=== PATIENT | female | born 1975 | race Caucasian/White ===

== ENCOUNTER 2016-08-30 11:39 | Emergency (ER) | payer BC, OTHER ==
[2016-08-30 12:46] VITALS: BP 123/78
--- NOTE | 2016-08-30 15:06 | UC ---
Tutu Burgos Karl, scribed for Maria R Medina DO on 08/30/16 at 1324 . FLU HPI - HPI Summary HPI Summary: Pt is a 40 y/o female that presents to [facility] c/o a runny nose, sinus pressure, body aches, ear ache at a 4/10, and a mild productive cough with yellow sputum for the past 4 days. Pt also reported that she is suffering from fever, chills, nausea, GENTILE, and diaphoresis, rating her ear ache, GENTILE, and body aches all at a 4/ 10. Pt is also suffering from fatigue and stated that she is feeling "super tired." Pt denied vomiting and diarrhea. Hx: asthma, 1/2 PPD smoker 26 years. - History of Current Complaint Chief Complaint: UCRespiratory Stated Complaint: CONGESTION, TIRED, Time Seen by Provider: 08/30/16 13:01 Hx Obtained From: Patient Hx Last Menstrual Period: 08/28/16 ?: No Onset/Duration: Gradual Onset, Lasting Days, Still Present Severity Currently: Mild Severity Initially: Mild Pain Intensity: 4 - Ear Pain/Body Aches/GENTILE Pain Scale Used: 0-10 Numeric Associated Signs & Symptoms: Positive: Fever, F/C, Myalgia, Cough, Sore Throat, Nasal Congestion, Headache. Negative: Vomiting, Diarrhea Related Hx: Smoking - Risk Factors Influenza Risk Factors: Negative - Allergy/Home Medications Allergies/Adverse Reactions: Allergies Allergy/AdvReac Type Severity Reaction Status Date / Time Sulfa Antibiotics Allergy Vomiting Verified 07/15/16 15:21 ENVIRONMENTAL Allergy WHEEZE Uncoded 07/15/16 15:21 PMH/Surg Hx/FS Hx/Imm Hx Endocrine History Of: Denies: Diabetes Cardiovascular History Of: Denies: Hypertension, Pacemaker/ICD Respiratory History Of: Reports: Asthma - HX OF SMOKER INDUCED / WHEEZE/TROUBLE BREATHING GI/ History Of: Reports: Kidney Stones - HX OF Psychological History Of: Reports: Anxiety - ON MEDICATION FOR, Depression - ON MEDICATION FOR - Surgical History Surgical History: Yes Surgery Procedure, Year, and Place: DILATION AND CURETTAGE X 2, [facility]. LAPAROSCOPY, [place]. WISDOM TOOTH, OFFICE. URINARY STENT YEARS AGO, [place]. 2013 RIGHT SHOULDER ARTHROSCOPY, ANTERIOR CAPSULORRHAPHY, [facility] [place]. 2015 UMBILICUS HERNIA REPAIR - Family History Known Family History: Positive: Hypertension - mother and father Negative: Cardiac Disease, Diabetes - Social History Alcohol Use: Occasionally Substance Use Type: None Smoking Status (MU): Heavy Every Day Tobacco Smoker Type: Cigarettes, eCigarettes - Pt switched to eCigarettes in March 2016 Amount Used/How Often: 1/2 PPD FOR ABOUT 26 YEARS Length of Time of Smoking/Using Tobacco: 26 YEARS Have You Smoked in the Last Year: Yes When Did the Patient Quit Smoking/Using Tobacco: 03/19/2016 Cessation Counseling: Counseled 3+Min - 10 Min - Immunization History Most Recent Influenza Vaccination: 06/30 Review of Systems Constitutional: Fever, Chills, Fatigue Skin: Negative Eyes: Negative ENT: Sore Throat, Ear Ache, Nasal Discharge, Other - sinus congestion Respiratory: Cough - productive w/ yellow sputum Cardiovascular: Negative Gastrointestinal: Negative Genitourinary: Negative Motor: Negative Neurovascular: Negative Musculoskeletal: Negative, Myalgia - generalized body aches Neurological: Headache Psychological: Negative All Other Systems Reviewed And Are Negative: Yes Physical Exam Triage Information Reviewed: Yes Appearance: Well-Appearing, No Pain Distress, Well-Nourished Vital Signs: Initial Vital Signs Temp 97.7 F 08/30/16 12:43 Pulse 91 08/30/16 12:43 Resp 14 08/30/16 12:43 BP 123/78 08/30/16 12:43 Pulse Ox 100 08/30/16 12:43 Vital Signs Reviewed: Yes Eyes: Positive: Conjunctiva Clear. Negative: Discharge ENT: Positive: Hearing grossly normal, Pharyngeal erythema, Nasal congestion - and discharge, Nasal drainage, Tonsillar swelling, Other: - lymphadenopathy, TM' s occluded on initial exam. Negative: Tonsillar exudate, Trismus, Muffled/ hoarse voice Neck exam: Normal Neck: Positive: Supple. Negative: No Lymphadenopathy Respiratory: Positive: Lungs clear, Normal breath sounds, No respiratory distress, No accessory muscle use Cardiovascular: Positive: RRR, No Murmur Musculoskeletal Exam: Normal Neurological: Positive: Alert, Muscle Tone Normal Psychological Exam: Normal Psychological: Positive: Age Appropriate Behavior Skin Exam: Normal - warm, dry, normal color Flu Course/Dx - Course Course Of Treatment: pt ears could not be fully irrigated. we reccomended use of debrox drops for 2-5 days then repeating irrigation - Differential Dx/Diagnosis Provider Diagnoses: influenza, cerumen impaction Discharge - Discharge Plan Condition: Stable Disposition: HOME Patient Education Materials: Cerumen Impaction (ED), Influenza (ED) Forms: *Work Release Referrals: Alex Varela NP [Primary Care Provider] - If Needed Additional Instructions: TRY USING THE NETTI POT IN THE MORNINGS DISCUSSED. YOU MUST ALWAYS USE CLEAN WATER. REMEMBER, POSTURE IS AN IMPORTANT FACTOR IN SINUS DRAINAGE. MOVE YOUR NECK, BREATHE. The documentation as recorded by the Tutu bernard Karl accurately reflects the service I personally performed and the decisions made by me, Maria R Medina DO.
[2016-08-30 16:48] LABS: EBV Response YES
[2016-08-30 17:00] LABS: Manual Entry Verification DOM0004; Mono Internal Control QC Line Present
[2016-09-01 12:52] LABS: EBV Capsid Ag IgG Ab Positive (Negative); EBV Capsid Ag IgM Ab Negative (Negative)
== END 2016-08-30 14:55 | disposition home or self-care (01) ==
LOC: UCEAST 11:39
DX: J11.1 Influenza due to unidentified influenza virus with other respiratory manifestations (principal); F17.210 Nicotine dependence, cigarettes, uncomplicated; Z87.09 Personal history of other diseases of the respiratory system
CPT/HCPCS: 36415; 86308; 86664; 86665; 87502; 87651; 99202; 99212; G0463

== ENCOUNTER 2017-02-18 21:38 | Emergency (ER) | payer OTHER ==
[2017-02-18 23:59] LABS: Hematocrit 44 % (35-47); Hemoglobin 14.8 g/dl (12.0-16.0); Mean Corpuscular HGB Conc 34 g/dl (31-36); Mean Corpuscular Hemoglobin 31 pg (27-31); Mean Corpuscular Volume 92 fL (80-97); Mean Platelet Volume 8 um3 (7.4-10.4); Red Blood Count 4.78 10^6/ul (4.0-5.4); Red Cell Distribution Width 13 % (10.5-15); White Blood Count 6.3 10^3/ul (3.5-10.8)
[2017-02-19 00:18] LABS: Albumin 3.9 g/dL (3.2-5.2); BUN/Creatinine Ratio 12.3 (8-20); EGFR African American 113.6 (>60); EGFR Non-African American 88.3 (>60); Potassium 3.7 mmol/L (3.5-5.0); Total Bilirubin 0.7 mg/dL (0.2-1.0); Total Protein 6.9 g/dL (6.4-8.9)
[2017-02-19] MEDS ORDERED: NS 0.9% 1000 ML* 1,000 ML IV ONE (01:33)
[2017-02-19 02:14] LABS: Urine Bilirubin Negative (Negative); Urine Glucose Negative (Negative); Urine Nitrite Negative (Negative)
[2017-02-19 02:26] LABS: C Reactive Protein 36.16 mg/L (< 5.00)
[2017-02-19] MEDS ORDERED: Morphine INJ* 4 MG/ML 1 ML SYRINGE IV ONE (03:18)
[2017-02-19 05:38] LABS: CSF Glucose 68 mg/dL (40-70)
[2017-02-19 05:42] LABS: Body Fluid Appearance Clear
[2017-02-19 05:43] LABS: BF RBC Count #1 0; BF RBC Count #2 0; BF WBC Count #1 0; BF WBC Count #2 0; Body Fluid WBC 0 /mcL; RBC counts within 6%? Yes; WBC counts within 15%? Yes
[2017-02-19 05:55] LABS: BF RBC Count #1 0; BF RBC Count #2 0; BF WBC Count #1 0; BF WBC Count #2 0; Body Fluid WBC 0 /mcL; RBC counts within 6%? Yes; WBC counts within 15%? Yes
[2017-02-19 07:21] VITALS: BP 108/72
--- NOTE | 2017-02-19 08:07 | RAD ---
HISTORY: Headache, fever, light sensitivity COMPARISONS: August 18, 2010 TECHNIQUE: Multiple contiguous axial CT scans were obtained of the head without intravenous contrast. FINDINGS: HEMORRHAGE/INFARCT: There is no hemorrhage or acute infarct. MASSES/SHIFT: There is no mass or shift. EXTRA-AXIAL SPACES: There are no extra-axial fluid collections. SULCI AND VENTRICLES: The sulci and ventricles are normal in size and position for the patient's stated age. CEREBRUM: There are no focal parenchymal abnormalities. BRAINSTEM: There are no focal parenchymal abnormalities. CEREBELLUM: There are no focal parenchymal abnormalities. VESSELS: The vessels are grossly normal. PARANASAL SINUSES: The paranasal sinuses are clear. ORBITS: The orbits are unremarkable. BONES AND SOFT TISSUE: No bone or soft tissue abnormalities are noted. OTHER: None IMPRESSION: NO ACUTE INTRACRANIAL PATHOLOGY.
--- NOTE | 2017-02-19 08:43 | ED ---
Wesley Burgos Rebecca, scribed for Jessika Heaton MD on 02/19/17 at 0029 . HPI Febrile Illness - HPI Summary HPI Summary: Pt is a 41 y/o F who presents to ED c/o fever. Sx began 2 days ago ( night) and have been intermittent since onset. Fever was 102.8 on night and immediately FIXED [employer] by oral thermometer. Took 4 Ibuprofen tonight at 2000 which alleviated sx. Sx aggravated by nothing. Additionally c/o photophobia, R- sided lympahenopathy, dental pain and GENTILE with neck and upper back pain. GENTILE is in the frontal region and described as "very strange" and "unlike anything I've ever had before." Pain is currently severe, ranked 7/10. Denies cough, sore throat, dysuria and sinus pressure. Denies any mosquito bites or known tick exposure. Reports her son has not been home for the past 2 weeks. Was evaluated by her PCP earlier today where a flu swab was done that was negative. - History of Current Complaint Chief Complaint: EDFever Time Seen by Provider: 02/19/17 00:03 Hx Obtained From: Patient Onset/Duration: Started Days Ago - 2 days ago, Still Present Timing: Intermittent Temperature: 102.8 F Current Severity: Severe Pain Intensity: 7 Pain Scale Used: 0-10 Numeric Aggravating Factors: Nothing Alleviating Factors: OTC Medicine - Ibuprofen Associated Signs and Symptoms: Headache - Frontal, Other: - Neck and upper back pain; Dental pain; R-sided lymphadenopathy; Photophobia - Allergy/Home Medications Allergies/Adverse Reactions: Allergies Allergy/AdvReac Type Severity Reaction Status Date / Time Sulfa Antibiotics Allergy Vomiting Verified 02/18/17 21:46 ENVIRONMENTAL Allergy WHEEZE Uncoded 02/18/17 21:46 PMH/Surg Hx/FS Hx/Imm Hx Previously Healthy: No Endocrine/Hematology History: Denies: Hx Diabetes Cardiovascular History: Denies: Hx Hypertension, Hx Pacemaker/ICD Respiratory History: Reports: Hx Asthma - HX OF SMOKER INDUCED / WHEEZE/TROUBLE BREATHING GI History: Reports: Other GI Disorders - HX OF N/V NONE RECENTLY History: Reports: Hx Kidney Infection - HX OF YEARS AGO, Hx Kidney Stones - HX OF Musculoskeletal History: Reports: Hx Bursitis - RIGHT SHOULDER, TEMPORAL MANDIBULAR JOINT LEFT SIDE,, Other Musculoskeletal History - PRESENTLY LEFT FOOT BURSITIS Sensory History: Denies: Hx Contacts or Glasses, Hx Hearing Aid Opthamlomology History: Denies: Hx Contacts or Glasses Neurological History: Reports: Hx Headaches - HX OF Psychiatric History: Reports: Hx Anxiety - ON MEDICATION FOR, Hx Depression - ON MEDICATION FOR Denies: Hx Panic Disorder - Surgical History Surgery Procedure, Year, and Place: DILATION AND CURETTAGE X 2, [facility]. LAPAROSCOPY, [place]. WISDOM TOOTH, OFFICE. [facility] 2013 RIGHT SHOULDER ARTHROSCOPY, ANTERIOR CAPSULORRHAPHY, [facility] [place]. 2015 UMBILICUS HERNIA REPAIR Hx Anesthesia Reactions: No Infectious Disease History: No Infectious Disease History: Denies: Traveled Outside the [place] in Last 30 Days - Family History Known Family History: Positive: Cardiac Disease - grandfather, Other - CA ( Cervical or Uterine CA in mother - unknown which one) - Social History Alcohol Use: Occasionally Substance Use Type: Reports: None Smoking Status (MU): Heavy Every Day Tobacco Smoker Type: Cigarettes Amount Used/How Often: 1/2 PPD FOR ABOUT 26 YEARS Length of Time of Smoking/Using Tobacco: 26 YEARS Have You Smoked in the Last Year: Yes Review of Systems Positive: Fever - 102.8 FIXED [employer], Other - R-sided lymphadenopathy Positive: Photophobia Positive: Dental Pain, Other - Denies sinus pressure. Negative: Sore Throat Negative: Cough Negative: dysuria Positive: Arthralgia - Neck and upper back pain Positive: Headache - Frontal All Other Systems Reviewed And Are Negative: Yes Physical Exam Triage Information Reviewed: Yes Vital Signs On Initial Exam: Initial Vitals Temp Pulse 98.6 F 108 02/18/17 21:42 02/18/17 21:42 Vital Signs Reviewed: Yes Appearance: Positive: Well-Nourished, Pain Distress Skin: Positive: Warm, Skin Color Reflects Adequate Perfusion Eyes: Positive: Conjunctiva Clear ENT: Positive: Tonsillar swelling, Other - No sinus tenderness Dental: Negative: Percussion Tenderness @, Gross Decay/Caries @, Dental Fracture @, Abscess @ Neck: Positive: Other: - Good chin to chest but had pain in the posterior neck with neck flexion; Negative Kernig's and Brudzinski's signs Respiratory/Lung Sounds: Positive: Clear to Auscultation, Breath Sounds Present , Other - No respiratory distress Cardiovascular: Positive: RRR, Pulses are Symmetrical in both Upper and Lower Extremities, Other - Brisk capillary refill Abdomen Description: Positive: Nontender, Soft. Negative: Splenomegaly Bowel Sounds: Positive: Present Musculoskeletal: Positive: Pain @ - Pain to palpation of posterior spines of the thoracic and lumbar areas Neurological: Positive: Sensory/Motor Intact, Alert, Oriented to Person Place, Time. Negative: Facial Droop, Focal Deficit @, Slurred Speech Psychiatric: Positive: Affect/Mood Appropriate Procedures - Lumbar Puncture Position: Lateral Decubitus - Left Aseptic Technique: Lidocaine Anesthesia Used: 1.0% Lido Spinal Needle Used: 20 Gauge - 1st attempt, Other - 18 gauge Lumbar Puncture Note: Consent obtained, time out performed. Pt is in the L lateral decubitus positions. Size 20 gauge spinal needle placed in the L4-L5 interspace with blood obtained and no CSF. Second attempt with 18 gauge spinal needle placed in the L4-L5 interspace with blood obtained and no CSF. Compression applied at site. Pt tolerated procedure well and anesthesia was consulted. Diagnostics - Vital Signs Vital Signs Temp Pulse Resp BP Pulse Ox 02/18/17 23:32 97.6 F 78 16 98 02/18/17 21:45 98.6 F 106 18 134/81 99 02/18/17 21:42 98.6 F 108 - Laboratory Lab Results: Lab Results 02/18/17 Range/Units 23:50 WBC 6.3 (3.5-10.8) 10^3/ul RBC 4.78 (4.0-5.4) 10^6/ul Hgb 14.8 (12.0-16.0) g/dl Hct 44 (35-47) % MCV 92 (80-97) fL MCH 31 (27-31) pg MCHC 34 (31-36) g/dl RDW 13 (10.5-15) % Plt Count 155 (150-450) 10^3/ul MPV 8 (7.4-10.4) um3 Neut % (Auto) 75.2 (38-83) % Lymph % (Auto) 17.0 L (25-47) % Fountain % (Auto) 6.6 (1-9) % Eos % (Auto) 0.7 (0-6) % Baso % (Auto) 0.5 (0-2) % Absolute Neuts (auto) 4.7 (1.5-7.7) 10^3/ul Absolute Lymphs (auto) 1.1 (1.0-4.8) 10^3/ul Absolute Monos (auto) 0.4 (0-0.8) 10^3/ul Absolute Eos (auto) 0 (0-0.6) 10^3/ul Absolute Basos (auto) 0 (0-0.2) 10^3/ul Absolute Nucleated RBC 0.01 10^3/ul Nucleated RBC % 0.2 Result Diagrams: 02/18/17 23:50 02/18/17 23:50 Lab Statement: Any lab studies that have been ordered have been reviewed, and results considered in the medical decision making process. - Radiology CXR Xray Interpretation: No Acute Changes Radiology Interpretation Completed By: ED Physician - CT Brain CT CT Interpretation: No Acute Changes - Normal exam. CT Interpretation Completed By: Radiologist Re-Evaluation - Re-Evaluation First Eval Re-Evaluation Time: 06:05 Change: Improved Comment: Updated the pt on results of LP and labs. Reports she no longer has a GENTILE. Answered any questions. Second Eval Re-Evaluation Time: 06:33 Comment: Pt has a slight GENTILE for which she will receive morphine. Her boyfriend is on the way to pick her up and she requested a work note for today. Note: pt left before second morphine administered. Course/Dx - Course Assessment/Plan: Pt is a 41 y/o F who presents to ED c/o fever for 2 days, maximum temperature of 102.8 by oral thermometer. Took 4 Ibuprofen tonight at 2000 which alleviated sx. Sx aggravated by nothing. Additionally c/o photophobia , R-sided lympahenopathy, dental pain and GENTILE with neck and upper back pain. GENTILE is in the frontal region and described as "very strange" and "unlike anything I' ve ever had before." Pain is currently severe, ranked 7/10. Denies cough, sore throat, dysuria and sinus pressure. Denies any mosquito bites or known tick exposure. Was evaluated by her PCP earlier today where a flu swab was done that was negative. CXR and brain CT reveal no acute findings. LP reveals no acute findings. Discusse care of pt with Dr. Corona who will evaluate the pt in the ED. Discussed with Geen ([id number]) at 0500, in the lab, confirming that he entered CSF fluid test. Discussed with Gene at 0558 again who reported there are no cells in the CSF. Discussed with Gene at 0600 and advised that the West Nile, Lyme and Herpes tests be cancelled due to no cells in the CSF. Pt will be D/C to home with Dx of febrile illness. She understands and agrees. Pt advised re possible post spinal tap headache. Allergies noted. Pt medications reviewed this visit. - Febrile Illness Differential Diagnoses: Encephalitis, Meningitis, Viremia - Diagnoses Provider Diagnoses: Febrile illness - Provider Notifications Discussed Care Of Patient With: Mario Corona Time Discussed With Above Provider: 04:11 - asked for anesthesiologist to perform LP Instructed by Provider To: Other - Will evaluate the pt in the ED. Discussed with Gene ([id number]) at 0500, in the lab, confirming that he entered CSF fluid test. Discussed with Gene at 0558 again who reported there are no cells in the CSF. Discussed with Gene at 0600 and advised that the West Nile, Lyme and Herpes tests be cancelled. Discharge - Discharge Plan Condition: Stable Disposition: HOME Patient Education Materials: Lumbar Puncture (ED), Fever in Adults (ED) Forms: *Work Release Referrals: Alex Varela NP [Primary Care Provider] - 3 Days Additional Instructions: Your spinal tap did not show any sign of meningitis. There is still a culture of the spinal fluid pending but it is expected to be negative, since there were no cells in the spinal fluid. Dr. Heaton read your chest xray as negative. There will be an official reading today. If there is any change in the reading you will be notified. You may continue to take tylenol or ibuprofen for fever. If you develop a headache that is not associated with fever, it may be a post spinal tap headache, and you should seek medical attention, as a procedure called a blood patch can be done to help with that headache. Return to the ER if you have any new or worsening symptoms. The documentation as recorded by the Wesley bernard Rebecca accurately reflects the service I personally performed and the decisions made by , Jessika Heaton MD.
--- NOTE | 2017-02-19 08:49 | RAD ---
HISTORY: Fever COMPARISONS: None VIEWS:1: Single frontal portable view of the chest at 2:00 AM FINDINGS: LINES AND TUBES: None. CARDIOMEDIASTINAL SILHOUETTE: The cardiomediastinal silhouette is normal for portable technique. PLEURA: The costophrenic angles are sharp. No pleural abnormalities are noted. LUNG PARENCHYMA: The lungs are clear. ABDOMEN: The upper abdomen is clear. There is no subphrenic gas. BONES AND SOFT TISSUES: No bone or soft tissue abnormalities are noted. IMPRESSION: NO ACTIVE CARDIOPULMONARY DISEASE.
== END 2017-02-19 07:19 | disposition home or self-care (01) ==
LOC: ED 21:38
DX: R50.9 Fever, unspecified (principal); R51 Headache; M54.2 Cervicalgia; M54.9 Dorsalgia, unspecified; K08.89 Other specified disorders of teeth and supporting structures; R59.1 Generalized enlarged lymph nodes; H53.149 Visual discomfort, unspecified; Z32.02 Encounter for pregnancy test, result negative; J45.909 Unspecified asthma, uncomplicated; Z87.442 Personal history of urinary calculi; F41.9 Anxiety disorder, unspecified; F32.9 Major depressive disorder, single episode, unspecified; Z88.2 Allergy status to sulfonamides; F17.210 Nicotine dependence, cigarettes, uncomplicated
CPT/HCPCS: 36415; 62270; 70450; 71010; 80053; 81003; 82945; 83605; 84157; 84702; 85025; 86140; 87040; 87070; 87205; 87502; 87651; 89051; 96361; 96374; 99283; J2270

== ENCOUNTER 2017-02-21 06:48 | Inpatient (IN) | payer BC, OTHER ==
[2017-02-21] MEDS ORDERED: NS 0.9% 1000 ML* 1,000 ML IV ONE (07:19)
[2017-02-21] MEDS ORDERED: Ondansetron INJ* 2 MG/ML VIAL IV ONE ×2 (07:20→08:44)
[2017-02-21 07:53] LABS: Hematocrit 42 % (35-47); Hemoglobin 14.1 g/dl (12.0-16.0); Mean Corpuscular HGB Conc 34 g/dl (31-36); Mean Corpuscular Hemoglobin 31 pg (27-31); Mean Corpuscular Volume 92 fL (80-97); Mean Platelet Volume 10 um3 (7.4-10.4); Red Blood Count 4.56 10^6/ul (4.0-5.4); Red Cell Distribution Width 13 % (10.5-15); White Blood Count 6.7 10^3/ul (3.5-10.8)
--- NOTE | 2017-02-21 07:57 | RAD ---
HISTORY: Fever COMPARISONS: February 19, 2017 VIEWS:1: Single frontal portable view of the chest at 7:40 AM FINDINGS: LINES AND TUBES: None. CARDIOMEDIASTINAL SILHOUETTE: The cardiomediastinal silhouette is normal for portable technique. PLEURA: The costophrenic angles are sharp. No pleural abnormalities are noted. LUNG PARENCHYMA: There is faint alveolar opacification in the right lung base ABDOMEN: The upper abdomen is clear. There is no subphrenic gas. BONES AND SOFT TISSUES: No bone or soft tissue abnormalities are noted. IMPRESSION: FAINT AIRSPACE DISEASE OF THE RIGHT LUNG BASE WHICH MAY REPRESENT MILD ATELECTASIS VERSUS EARLY CONSOLIDATION.
[2017-02-21 08:03] LABS: ALT 49 U/L (7-52); AST 43 U/L (13-39); Albumin 4.1 g/dL (3.2-5.2); Alkaline Phosphatase 70 U/L (34-104); Anion Gap 8 mmol/L (2-11); BUN/Creatinine Ratio 11.4 (8-20); Blood Urea Nitrogen 8 mg/dL (6-24); C Reactive Protein 87.82 mg/L (< 5.00); CO2 Carbon Dioxide 25 mmol/L (22-32); Calcium 9.2 mg/dL (8.6-10.3); Chloride 103 mmol/L (101-111); EGFR African American 119.2 (>60); EGFR Non-African American 92.7 (>60); Globulin 3.3 g/dL (2-4); Glucose 103 mg/dL (70-100); Sodium 136 mmol/L (133-145); Total Protein 7.4 g/dL (6.4-8.9)
[2017-02-21] MEDS ORDERED: Morphine INJ* 4 MG/ML 1 ML SYRINGE IV ONE (08:05)
[2017-02-21] MEDS ORDERED: Ondansetron INJ* 2 MG/ML VIAL ONE (08:47)
[2017-02-21 09:43] LABS: Erythrocyte Sed Rate 33 mm/Hr (0-14)
[2017-02-21] MEDS ORDERED: DOXYcycline IV* 100 MG in NS 0.9% 250 ML* 250 ML IVPB ONE (09:53)
[2017-02-21] MEDS ORDERED: NS 0.9% 1000 ML* 1,000 ML IV SCH (10:15)
[2017-02-21 10:23] LABS: Urine Bilirubin Negative (Negative); Urine Glucose Negative (Negative); Urine Nitrite Negative (Negative)
[2017-02-21] MEDS: Acetaminophen TAB* 325 MG PO PRN ×2 (11:23→17:55)
[2017-02-21] MEDS ORDERED: Ibuprofen TAB* 800 MG PO PRN (11:37)
--- NOTE | 2017-02-21 11:41 | CONS ---
CONSULTATION NOTE DATE OF CONSULTATION: 02/21/2017. REFERRING PHYSICIAN: Dr. Heaton. CONSULTING SERVICE: Infectious Disease. REASON FOR CONSULTATION: Fever and headache. IMPRESSION: 1. Five days of unprogressive fever, chills, and right-sided headache. She has thrombocytopenia and elevated C-reactive protein. No focal signs or symptoms on exam. At this time of year and given a decent amount of outdoor exposure, early Lyme is a consideration even though there is not a rash. A few percentage will not have the rash, will not notice it, or it shows up later than the systemic symptoms. Thrombocytopenia raises the question of anaplasmosis ; however, that may also just be due to systemic infection. I suspect the same is true for the headache, that it is due to a systemic infection. She had a lumbar puncture two or three days ago that showed no CSF pleocytosis. She does also have some right ear fullness and right-sided headache. Her canal is obstructed with cerumen. I think otitis is less likely. She has a slight transaminase as well, again raising the question of anaplasmosis. 2. Hypotension. 3. Dry mucus membranes. She does have dehydration with recent poor fluid intake. RECOMMENDATIONS: Doxycycline 100 mg IV every 12 hours and fluid hydration. Will send a tick panel PCR. Will follow her symptoms closely and I discussed that some will feel worse after starting antibiotics for Lyme in the first 12 hours. She had another set of blood cultures and urinalysis sent as well. HISTORY OF PRESENT ILLNESS: This is a 41-year-old woman with headache and fever. She was well until . She developed progressive fatigue then diffuse body aches, low grade fever which became higher later in the evening with chills, no rigors. The next day she developed a severe headache which was bilateral and then became more right sided. She has had no change in her hearing, no vision change and does not have a history of headaches. The headache progressed and became more severe with some mild photophobia. She came to the hospital on the , white count was 6, her platelet count was 150, her C-reactive protein was 36. She had a lumbar puncture because of the headache. There were no white blood cells. Glucose was 68, protein 32. CSF culture was negative. Blood cultures sent that day are negative. She had a urinalysis that day which was negative as well. She went home, was using Tylenol which helped a little bit to keep the fever down, but she continued to have a fever as high as 103 last night and drenching sweats. She came back to the ER this morning. Her platelet count is 117, her white count is 6, her CRP is up to 90, blood pressure is in the 90s. She is getting IV fluid hydration. Her ALT also is 49 and AST is 43, it was 26 on the 7th, the ALT was 30. She spends a decent amount of time outdoors where they live in [place]. They have a dog who is outdoors a lot. She has not noticed any ticks, has not particularly been looking. She has had no rashes which she has noticed. Today, she continues to have chills, sweats, body aches, severe headache, mostly on the right. She has some right ear fullness. No change in hearing. Dr. Heaton looked in her ear and it is occluded with cerumen, they are going to get on that. She does not have any sinus or mastoid pain. She has not had any travel in the last few weeks. PAST MEDICAL HISTORY: Depression, obesity, anxiety. MEDICATIONS AT HOME: 1. Trazodone 50 mg at bedtime. 2. Percocet from the ER. 3. Ativan 1 mg a daily. 4. Bupropion 300 mg in the morning. 5. Aripiprazole 10 mg at bedtime. ALLERGIES: SULFA CAUSED VOMITING. FAMILY HISTORY: No recurrent infections or tuberculosis. SOCIAL HISTORY: She lives in [facility] with her fiance, has a 19-year-old child at home who has been well. There are dogs at home. No travel. No sick contacts. REVIEW OF SYSTEMS: All negative to full review of systems except as noted above. PHYSICAL EXAM: General: She is awake, appears uncomfortable. She is diaphoretic and flushed. Vital Signs: Temperature 37, heart rate 80, respiratory rate 17, O2 saturation 94, blood pressure 95/53. HEENT: There is no conjunctival hemorrhage. Oropharynx without lesions. Right TM is obstructed is cerumen. There is no mastoid or frontal sinus tenderness to palpation on either side. The left TM is clear. Neck: Supple without nuchal rigidity. Lymph nodes: There is no cervical, supraclavicular, inguinal, axillary, or epitrochlear lymphadenopathy. Heart: Regular rate and rhythm without murmurs, rubs or gallops. Lungs: Clear to auscultation bilaterally. Abdomen: Soft, nontender, nondistended. There are bowel sounds present. There is no hepatosplenomegaly. Skin: There is no rash or splinter hemorrhage. Musculoskeletal: There is no spine tenderness to palpation or joint synovitis. DIAGNOSTIC STUDIES/LAB DATA: White blood cell count 6, hemoglobin 14, platelets 117, creatinine 0.7, CRP 90, HCG 0. Chest x-ray was reported as possible right base infiltrate on an AP film. To my exam, I do not see an infiltrate. Please see impressions and recommendations as outlined above which I have discussed with Dr. Heaton. Thank you for asking me to see Ms. Carey in consultation. [id number] #: [id number] MTDColin
[2017-02-21] MEDS: Morphine INJ* 4 MG/ML 1 ML SYRINGE IV PRN ×2 (12:00→16:03)
[2017-02-21] MEDS: traMADol TAB* 50 MG PO PRN ×2 (13:58→22:29)
--- NOTE | 2017-02-21 14:34 | HP ---
CC: MERVIN Galdamez * HOSPITAL MEDICINE HISTORY AND PHYSICAL: DATE OF ADMISSION: 02/21/17 ATTENDING PHYSICIAN: Bárbara Cornelius MD * (dictated provided by Nataliya Stubbs NP) PRIMARY CARE PHYSICIAN: MERVIN Galdamez CHIEF COMPLAINT: Fever and headache. HISTORY OF PRESENT ILLNESS: Ms. Anita Carey is a 41-year-old female with no known past medical history, who presents to the hospital today with concern for fever and headache. Ms. Carey states that her symptoms began on of last week when she had this sudden onset of fever to as high as 103. Thereafter , she also developed headache. She was seen by her primary care physician, who obtained a flu swab which was negative. She ultimately presented to the emergency room in the glove wrapper of 02/19/17. At that time, an LP was performed that showed essentially negative cell count. The patient was discharged to home with suspicion that perhaps she had a viral process. Ms. Carey continues to have fever and headache with generalized malaise and therefore returned to the ED today. At that time, she was seen by Dr. Valadez from Infectious Diseases. The patient denies any awareness of rash, although she does have reasonable amount of time outdoors. His suspicion is that perhaps she has Lyme disease or anaplasmosis given that she has a mild thrombocytopenia, an elevated AST, and these systemic symptoms as described above. The patient was given doxycycline and intravenous fluids in the ED. PAST MEDICAL HISTORY: None. MEDICATIONS: Lorazepam 1 mg p.o. daily p.r.n. and trazodone 50 mg p.o. at bedtime. ALLERGIES: SULFA. FAMILY HISTORY: The patient reports her parents are alive and well. No acute health problems or chronic health problems. She reports that her grandfather on her father's side related to coronary artery disease with multiple bypass grafts and her mother's mother related to brain tumor many years ago. SOCIAL HISTORY: The patient is a former smoker. She quit 1 year ago. She reports drinking alcohol very occasionally. There is no reported drug use. She lives with her fiance who is healthcare proxy. REVIEW OF SYSTEMS: A 14-point review of systems was completed with Ms. Carey and all those not mentioned above were negative. PHYSICAL EXAMINATION GENERAL: Ms. Carey is sitting in the bed. She is in no acute distress. VITAL SIGNS: Temperature 102.4, heart rate 88, respiratory rate 18, O2 saturation 100% on room air, blood pressure 132/74. LUNGS: Clear to auscultation bilaterally with no accessory muscle use and good aeration. HEART: S1, S2. No murmur, rub, or gallop and regular. ABDOMEN: Soft, nontender with bowel sounds positive x4. EXTREMITIES: No cyanosis. No edema. NEUROLOGIC: She is alert, she is oriented x3. She moves all extremities equally. There is no facial asymmetry or focal weakness. Extraocular movements are intact. SKIN: Intact. There is no rash evident. DIAGNOSTIC STUDIES/LAB DATA: Sodium 136, potassium 4.0, chloride 103, serum bicarbonate 25, BUN 8, creatinine 0.70, glucose 103. T-bili 1.30, AST 43, ALT 49, alk phos 70, CRP 87.82. Beta-hCG is less than 0.60. WBC is 6.7, hemoglobin 14.1, hematocrit 42, platelet count 117, ESR 33. Chest x-ray, faint airspace disease at the right lung base, which may represent mild atelectasis versus early consolidation. ASSESSMENT AND PLAN: Ms. Carey is a 41-year-old female with no known past medical history, who developed fever with headache and malaise on last week. She had an lumbar puncture in the emergency room on 02/18/17 with no cells seen at that time. Our plans are for observation in the hospital for the followin. Fever with headache: I appreciate the consultation from Dr. Valadez. She continues to be febrile. Her white blood cell count is normal, though she does have a mild elevation in her erythrocyte sedimentation rate and C-reactive protein. She has an associated elevated AST and a low platelet count. His suspicion is that she likely perhaps has a Lyme disease or anaplasmosis, and recommends that she be treated with doxycycline as well as intravenous fluids. Blood cultures have been sent. Her urine is negative for infection. Chest x- ray is also negative. 2. DVT prophylaxis with early mobility. 3. Disposition to medical floor. TIME SPENT: Approximately 60 minutes were spent on the admission of this patient, more than half the time spent with the patient at the bedside reviewing the events leading up to this hospitalization, performing the physical examination, and reviewing the plan of care. NATALIYA STUBBS, BLOG WRITER [id number]/[facility] #: [id number] [facility] CENTERColin
[2017-02-21] MEDS ORDERED: Butalb/Acetamin/Caff TAB* 1 TAB PO PRN (18:27)
[2017-02-21] MEDS ORDERED: Ketorolac INJ* 30 MG/ML 1 ML VIAL IV PUSH ONE (20:30)
[2017-02-21] MEDS: DOXYcycline IV* 100 MG in NS 0.9% 250 ML* 250 ML IVPB SCH (20:37)
[2017-02-21] MEDS: NS 0.9% 1000 ML* 1,000 ML IV SCH ×2 (20:41→22:25)
--- NOTE | 2017-02-21 20:49 | ED ---
Simran Burgos Alfonso, scribed for Jessiak Heaton MD on 02/21/17 at 0725 . Headache - HPI Summary HPI Summary: This patient is a 41 year old F presenting to [facility] accompanied by gallo with a chief complaint of a right-sided temporal headache since 4 days ago. The headache is constant and worsening. Pt rates the pain 7/10 in severity. Symptoms aggravated by position change and alleviated by nothing. Sx not alleviated by Tylenol taken every 5 hours. Pt reports fever (oral self-recorded 101.7 at 0200 today and 103.6 yesterday), nausea, right ear pain, neck pain, dental pain, and bilateral ankle pain. Pt denies vomiting, cough, sore throat, urinary symptoms, back pain, and rash. Pt was discharged from [facility] days ago after an LP and provider diagnosis of febrile illness. CSF gram stain and culture are neg, as are blood cultures from 02/18/17. Pt denies any rash or known tick exposure. PMHx of headaches, anxiety and depression. - History Of Current Complaint Chief Complaint: EDHeadache Stated Complaint: HEADACHE Time Seen by Provider: 02/21/17 07:10 Hx Obtained From: Patient Onset/Duration: Sudden Onset, Started days ago - 4, Worse Since Initially Headache Was: Moderate Currently Pain Is: Current Pain Scale(0-10)= - 7/10, Severe Timing: Constant Character: Dull Location of Headache: Temporal - Right-sided Aggravating Factor: Position Change Allevating Factors: Nothing Associated Signs And Symptoms: Nausea, Fever, Neck Pain, Other (Noted In Comments) - Dental pain, bilateral ankle pain, and right ear pain, - Risk Factors SAH Risk Factors: Negative Meningitis Risk Factors: Negative SDH Risk Factors: Negative Temporal Arteritis Risk Factors: Female - Allergies/Home Medications Allergies/Adverse Reactions: Allergies Allergy/AdvReac Type Severity Reaction Status Date / Time Sulfa Antibiotics Allergy Vomiting Verified 02/18/17 21:46 ENVIRONMENTAL Allergy WHEEZE Uncoded 02/18/17 21:46 Home Medications: Home Medications ARIPiprazole TAB* [Abilify TAB*] 10 mg PO BEDTIME 02/21/17 [History Confirmed 02/21/17] BuPROPion XL* [Bupropion XL*] 300 mg PO DAILY 02/21/17 [History Confirmed ] PMH/Surg Hx/FS Hx/Imm Hx Endocrine/Hematology History: Denies: Hx Diabetes Cardiovascular History: Denies: Hx Hypertension, Hx Pacemaker/ICD Respiratory History: Reports: Hx Asthma - HX OF SMOKER INDUCED / WHEEZE/TROUBLE BREATHING History: Reports: Hx Kidney Infection - HX OF YEARS AGO, Hx Kidney Stones Musculoskeletal History: Reports: Hx Bursitis - RIGHT SHOULDER, TEMPORAL MANDIBULAR JOINT LEFT SIDE,, Other Musculoskeletal History - PRESENTLY LEFT FOOT BURSITIS Sensory History: Denies: Hx Contacts or Glasses, Hx Hearing Aid Opthamlomology History: Denies: Hx Contacts or Glasses Neurological History: Reports: Hx Headaches Psychiatric History: Reports: Hx Anxiety - ON MEDICATION FOR, Hx Depression - ON MEDICATION FOR Denies: Hx Panic Disorder - Surgical History Surgery Procedure, Year, and Place: DILATION AND CURETTAGE X 2, [facility]. LAPAROSCOPY, [place]. WISDOM TOOTH, OFFICE. URINARY STENT YEARS AGO, [place]. 2013 RIGHT SHOULDER ARTHROSCOPY, ANTERIOR CAPSULORRHAPHY, [facility] 2015 UMBILICUS HERNIA REPAIR Hx Anesthesia Reactions: No Infectious Disease History: No Infectious Disease History: Denies: Traveled Outside the [place] in Last 30 Days - Family History Known Family History: Positive: Cardiac Disease - grandfather, Other - CA ( Cervical or Uterine CA in mother - unknown which one) - Social History Lives: With Family Alcohol Use: Occasionally Substance Use Type: Reports: None Smoking Status (MU): Heavy Every Day Tobacco Smoker Type: Cigarettes Amount Used/How Often: 1/2 PPD FOR ABOUT 26 YEARS Length of Time of Smoking/Using Tobacco: 26 YEARS Have You Smoked in the Last Year: Yes Review of Systems Positive: Fever Positive: Dental Pain, Ear Ache - Right. Negative: Sore Throat Cardiovascular: Negative Respiratory: Negative Negative: Cough Positive: Nausea. Negative: Vomiting Positive: no symptoms reported Positive: Other - Positive neck pain and bilateral ankle pain; negative back pain. Negative: Rash Positive: Headache - Right-sided temporal Psychological: Normal All Other Systems Reviewed And Are Negative: Yes Physical Exam Triage Information Reviewed: Yes Vital Signs On Initial Exam: Initial Vitals Temp Pulse Resp BP Pulse Ox 97.9 F 109 20 124/77 100 02/21/17 06:51 02/21/17 06:51 02/21/17 06:51 02/21/17 06:51 02/21/17 06:51 Vital Signs Reviewed: Yes Appearance: Positive: No Pain Distress, Ill-Appearing, Obese Skin: Positive: Warm, Skin Color Reflects Adequate Perfusion, Other - no rash Head/Face: Positive: Normal Head/Face Inspection Eyes: Positive: Conjunctiva Clear ENT: Positive: Normal ENT inspection, Other - TM cerumen occlusion on the right and left TM is clear; There was cerumen in right canal on 02/18/17 but TM was visible at that time and not inflamed or bulging. Dental: Negative: Percussion Tenderness @, Gross Decay/Caries @ Neck: Positive: Supple, No Lymphadenopathy, Other: - Tender neck muscles, bilat trapezius, good chin to chest Respiratory/Lung Sounds: Positive: Clear to Auscultation, Breath Sounds Present Cardiovascular: Positive: RRR, Pulses are Symmetrical in both Upper and Lower Extremities. Negative: Murmur Abdomen Description: Positive: Nontender, No Organomegaly, Soft Bowel Sounds: Positive: Present Musculoskeletal: Positive: Strength/ROM Intact Neurological: Positive: Sensory/Motor Intact, Alert, Oriented to Person Place, Time, CN Intact II-III, Speech Normal Psychiatric: Positive: Normal Diagnostics - Vital Signs Vital Signs Temp Pulse Resp BP Pulse Ox 02/21/17 07:10 97.9 F 96 17 121/76 100 02/21/17 06:51 97.9 F 109 20 124/77 100 - Laboratory Result Diagrams: 02/21/17 07:37 02/21/17 07:37 Lab Statement: Any lab studies that have been ordered have been reviewed, and results considered in the medical decision making process. - Radiology CXR Radiology Interpretation Completed By: Radiologist - FAINT AIRSPACE DISEASE OF THE RIGHT LUNG BASE WHICH MAY REPRESENT MILD ATELECTASIS VERSUS EARLY CONSOLIDATION. Re-Evaluation - Re-Evaluation Second Eval Re-Evaluation Time: 08:03 Change: Unchanged Comment: Pt states she still has a headache and would like pain medication. Headache Course/Dx - Course Assessment/Plan: 41 year old F presents to the ED with a CC of constant worsening right-sided temporal headaches for 4 days. Pt was discharged from [facility] days ago after an LP and provider diagnosis of febrile illness. Pt reports fever (oral self-recorded 101.7 at 0200 today and 103.6 yesterday), nausea, right ear pain, neck pain, dental pain, and bilateral ankle pain. Pt denies vomiting, cough, sore throat, urinary symptoms, back pain, and rash. CXR reveals FAINT AIRSPACE DISEASE OF THE RIGHT LUNG BASE WHICH MAY REPRESENT MILD ATELECTASIS VERSUS EARLY CONSOLIDATION. We discussed patient care with Dr. Corona (anesthesiologist) who stated a headache and fever post spinal tap is unusual, thus the source of the fever should be explored further. Consulted Dr. John Valadez (Infectious disease) at 0759 who stated he will see pt in the ED. Consulted Dr Valadez at 0952 who recommends for observation admission and IV abx to treat as possible Lyme. Consulted Dr. Church at 1002 who agrees to admit. Pt is agreeable with this plan. Allergies noted. Pt medications reviewed this visit. - Diagnoses Differential Diagnosis/HQI/PQRI: Meningitis, Mauri Mtn Spotted Fever, Sinus Headache, Viral Syndrome, Other - Lyme disease Provider Diagnoses: Febrile illness, acute - Physician Notifications Discussed Care Of Patient With: Mario Coorna Time Discussed With Above Provider: 07:25 Instructed by Provider To: Other - Consulted Dr. Corona (anesthesiologist) who stated a headache and fever post spinal tap is unusual, thus the source of the fever should be explored further. Consulted Dr. John Valadez ( Infectious disease) at 0759 who stated they will see pt in the ED. Consulted Dr Valadez at 0952 who recommends for observation admission and IV abx to treat as possible Lyme. Consulted Dr. Church at 1002 who agrees to admit. Pt is agreeable with this plan. Discharge - Discharge Plan Condition: Stable Disposition: ADMITTED TO [facility] documentation as recorded by the Simran bernard Alfonso accurately reflects the service I personally performed and the decisions made by , Jessika Heaton MD.
[2017-02-21] MEDS: PROCHLORPERAZINE INJ 5 MG/ML 2 ML VIAL IV PRN (22:40)
[2017-02-22] MEDS: Acetaminophen TAB* 325 MG PO PRN ×2 (03:09→23:34)
[2017-02-22] MEDS ORDERED: Ketorolac INJ* 15 MG/ML 1 ML VIAL IV PUSH PRN (04:25)
[2017-02-22] MEDS: Ketorolac INJ* 15 MG/ML 1 ML VIAL ONE ×2 (04:37→04:42)
[2017-02-22] MEDS: NS 0.9% 1000 ML* 1,000 ML IV SCH ×2 (06:55→16:29)
[2017-02-22] MEDS: PROCHLORPERAZINE INJ 5 MG/ML 2 ML VIAL IV PRN ×3 (08:03→23:43)
[2017-02-22] MEDS: traMADol TAB* 50 MG PO PRN ×2 (08:23→15:46)
[2017-02-22] MEDS: DOXYcycline IV* 100 MG in NS 0.9% 250 ML* 250 ML IVPB SCH ×2 (09:12→21:31)
[2017-02-22] MEDS ORDERED: Polyethylene Glycol 3350* 17 GM PACKET PO PRN (11:47)
[2017-02-22] MEDS ORDERED: SUMAtriptan TAB* 50 MG PO ONE (11:47)
--- NOTE | 2017-02-22 11:53 | PN ---
Subjective Date of Service: 02/22/17 Interval History: Seen with mike at bedside GENTILE continues b/l shooting pain a/w nausea, photo/phonophobia Chills yesterday with fever but noone since then Would like to shower Objective Active Medications: Acetaminophen (Tylenol Tab*) 650 mg PO Q6H PRN PRN Reason: pain/fever Last Admin: 02/22/17 03:09 Dose: 650 mg Acetaminophen/Butalbital/Caffeine (Fioricet Tab*) 1 tab PO Q6H PRN PRN Reason: HEADACHE Last Admin: 02/21/17 19:34 Dose: 1 tab Docusate Sodium (Colace Cap*) 200 mg PO DAILY [facility] Doxycycline Hyclate 100 mg/ (Sodium Chloride) 250 mls @ 250 mls/hr IVPB Q12H MANAS Last Admin: 02/22/17 09:12 Dose: 250 mls/hr Sodium Chloride (Ns 0.9% 1000 Ml*) 1,000 mls @ 125 mls/hr IV PER RATE [facility] Last Admin: 02/22/17 06:55 Dose: 125 mls/hr Ibuprofen (Motrin Tab*) 600 mg PO Q6H PRN PRN Reason: PAIN Omeprazole (Prilosec Cap*) 20 mg PO DAILY@0600 [facility] Polyethylene Glycol/Electrolytes (Miralax*) 17 gm PO DAILY PRN PRN Reason: CONSTIPATION Prochlorperazine Edisylate (Compazine Inj*) 5 mg IV Q6H PRN PRN Reason: NAUSEA/VOMITING Last Admin: 02/22/17 08:03 Dose: 5 mg Senna (Senokot Tab*) 2 tab PO BEDTIME [facility] Sumatriptan Succinate (Imitrex Tab*) 50 mg PO ONCE ONE Stop: 02/22/17 11:48 Tramadol HCl (Ultram*) 50 mg PO Q6H PRN PRN Reason: PAIN Last Admin: 02/22/17 08:23 Dose: 50 mg Vital Signs 02/21/17 02/21/17 02/21/17 12:00 12:31 13:00 Temperature Pulse Rate Respiratory 18 18 18 Rate Blood Pressure (mmHg) O2 Sat by Pulse Oximetry 02/21/17 02/21/17 02/21/17 13:58 15:41 15:58 Temperature 102.7 F Pulse Rate 86 Respiratory 118 16 18 Rate Blood Pressure 106/55 (mmHg) O2 Sat by Pulse 97 Oximetry 02/21/17 02/21/17 02/21/17 16:03 17:03 18:03 Temperature 100.2 F Pulse Rate Respiratory 18 18 Rate Blood Pressure (mmHg) O2 Sat by Pulse Oximetry 02/21/17 02/21/17 02/21/17 19:34 20:04 20:05 Temperature 98.3 F Pulse Rate 67 Respiratory 17 12 Rate Blood Pressure 87/51 86/48 (mmHg) O2 Sat by Pulse 97 Oximetry 02/21/17 02/21/17 02/22/17 21:34 22:29 00:02 Temperature 97.7 F Pulse Rate 55 Respiratory 18 16 20 Rate Blood Pressure 87/53 (mmHg) O2 Sat by Pulse 100 Oximetry 02/22/17 02/22/17 02/22/17 00:28 04:08 07:38 Temperature 97.5 F Pulse Rate 54 53 Respiratory 16 16 16 Rate Blood Pressure 100/55 88/52 (mmHg) O2 Sat by Pulse 99 100 Oximetry 02/22/17 02/22/17 02/22/17 08:02 08:23 10:23 Temperature Pulse Rate Respiratory 16 16 Rate Blood Pressure 100/64 (mmHg) O2 Sat by Pulse Oximetry Oxygen Devices in Use Now: None Appearance: NAD Eyes: No Scleral Icterus, PERRLA Ears/Nose/Mouth/Throat: Mucous Membranes Moist, - - small ulceration posterior pharynx, small white lesion posterior behind uvula/non tender Respiratory: Symmetrical Chest Expansion and Respiratory Effort, Clear to Auscultation Cardiovascular: NL Sounds; No Murmurs; No JVD, RRR Abdominal: NL Sounds; No Tenderness; No Distention, No Hepatosplenomegaly Lymphatic: No Cervical Adenopathy Extremities: No Edema Skin: No Rash or Ulcers Neurological: Alert and Oriented x 3 Result Diagrams: 02/21/17 07:37 02/21/17 07:37 Assess/Plan/Problems-Billing Assessment: 41 yo F p/e fevers and headache - Patient Problems (1) Fever Comment: suspision for tick born illness - lyme vs anaplasma Send out tests pending c/w doxycycline c/w IV NS tylenol PRN fever or pain this may also be viral illness improvig with time LP w/out WBC (2) Lesion of oral mucosa Comment: left posterior OP suspect lipoma unable to culture when attempted. Mobile/non fluctuant (3) Headache Comment: 2/2 system symptoms vs migrainous c/w tylenol, start motron, c/w tramadol start omeprazole while receiving NSAIDs trial triptan now (4) DVT prophylaxis Comment: SCDs OOB ad man
[2017-02-22] MEDS: Docusate CAP* 100 MG PO SCH (13:09)
--- NOTE | 2017-02-22 14:12 | PN ---
Progress Note - Progress Note Date of Service: 02/22/17 SOAP: Subjective: CC: fever HPI: 41 yo woman with recent onset fever and right sided headache. Seen in ER on a couple of occasions, had an LP Tuesday. Returned 02/21 with headache and fever, no focal symptoms. No fever since yesterday, felt better this morning now with headache and nausea. Headache mostly right sided, no numbness or weakness in extremities. Mild neck pain. Does have photophobia. Objective: [] Vital Signs Temp 36.5 C 02/22/17 12:10 Pulse 48 02/22/17 12:10 Resp 14 02/22/17 12:10 BP 112/73 02/22/17 12:10 Pulse Ox 98 02/22/17 12:10 Intake & Output 02/21/17 02/22/17 02/22/17 18:59 06:59 18:59 Intake Total 2130 2479 250 Balance 2130 2479 250 Weight 145 lb 15.136 oz Intake: IV Fluids 1000 2009 NS (0.9%) 885 IVPB 250 270 250 Oral 880 200 0 Other: Estimated Void Medium # Bowel Movements 0 # Voids 1 4 Gen:awake, appears uncomfortable HEENT:PERRL, MMM Neck:Supple, no rigidity Heart:RRR no murmur Lungs:CTA BL Abd:+BS NTND soft Skin: no rash Laboratory Tests 02/21/17 02/21/17 02/21/17 07:37 07:37 07:37 WBC 6.7 RBC 4.56 Hgb 14.1 Hct 42 MCV 92 MCH 31 MCHC 34 RDW 13 Plt Count 117 L MPV 10 Neut % (Auto) 85.2 H Lymph % (Auto) 5.1 L [place] % (Auto) 5.8 Eos % (Auto) 0.5 Baso % (Auto) 3.4 H Absolute Neuts (auto) 5.7 Absolute Lymphs (auto) 0.3 L Absolute Monos (auto) 0.4 Absolute Eos (auto) 0 Absolute Basos (auto) 0.2 Absolute Nucleated RBC 0 Nucleated RBC % 0 ESR 33 H Sodium 136 Potassium 4.0 Chloride 103 Carbon Dioxide 25 Anion Gap 8 BUN 8 Creatinine 0.70 Est GFR ( Amer) 119.2 Est GFR (Non-Af Amer) 92.7 BUN/Creatinine Ratio 11.4 Glucose 103 H Lactic Acid 1.4 Calcium 9.2 Total Bilirubin 1.30 H AST 43 H ALT 49 Alkaline Phosphatase 70 C-Reactive Protein 87.82 H Total Protein 7.4 Albumin 4.1 Globulin 3.3 Albumin/Globulin Ratio 1.2 Beta HCG, Quant < 0.60 Urine Color Urine Appearance Urine pH Ur Specific [place] Urine Protein Urine Ketones Urine Blood Urine Nitrate Urine Bilirubin Urine Urobilinogen Ur Leukocyte Esterase Urine Glucose 02/21/17 10:07 WBC RBC Hgb Hct MCV MCH MCHC RDW Plt Count MPV Neut % (Auto) Lymph % (Auto) [place] % (Auto) Eos % (Auto) Baso % (Auto) Absolute Neuts (auto) Absolute Lymphs (auto) Absolute Monos (auto) Absolute Eos (auto) Absolute Basos (auto) Absolute Nucleated RBC Nucleated RBC % ESR Sodium Potassium Chloride Carbon Dioxide Anion Gap BUN Creatinine Est GFR ( Amer) Est GFR (Non-Af Amer) BUN/Creatinine Ratio Glucose Lactic Acid Calcium Total Bilirubin AST ALT Alkaline Phosphatase C-Reactive Protein Total Protein Albumin Globulin Albumin/Globulin Ratio Beta HCG, Quant Urine Color Yellow Urine Appearance Clear Urine pH 6.0 Ur Specific [place] 1.019 Urine Protein Negative Urine Ketones 1+ H Urine Blood Negative Urine Nitrate Negative Urine Bilirubin Negative Urine Urobilinogen Positive H Ur Leukocyte Esterase Negative Urine Glucose Negative Assessment: 1. fever, Headache, thrombocytopenia, LP no CSF pleocytosis; differential includes viral infection (WNV, [place], other seasonal), Lyme (have had a few this year that included low PLT), Borrelia myamotoi or less likely Anaplasma ( normal WBC and LFTs). Fever improved. 2. sulfa allergy Plan: 1. continue doxycycline 100 mg IV Q12hrs. B. miyamotoi PCR pending. Will add Lyme and [place] IgM (blood). 2. supportive care
[2017-02-22] MEDS: Ibuprofen TAB* 600 MG PO PRN (15:46)
[2017-02-22 18:33] LABS: B. miyamotoi PCR, B Negative (Negative); Babesia divergens/MO-1 Negative (Negative); Babesia ducani Negative (Negative); Ehrlichia ewingii/canis Negative (Negative)
[2017-02-22] MEDS ORDERED: Senna TAB PO SCH (21:00)
[2017-02-22] MEDS: SUMAtriptan TAB* 50 MG PO PRN (23:33)
[2017-02-23] MEDS: NS 0.9% 1000 ML* 1,000 ML IV SCH (01:37)
[2017-02-23 05:25] LABS: Hematocrit 37 % (35-47); Hemoglobin 12.3 g/dl (12.0-16.0); Mean Corpuscular HGB Conc 33 g/dl (31-36); Mean Corpuscular Hemoglobin 31 pg (27-31); Mean Corpuscular Volume 92 fL (80-97); Mean Platelet Volume 9 um3 (7.4-10.4); Red Blood Count 3.97 10^6/ul (4.0-5.4); Red Cell Distribution Width 13 % (10.5-15); White Blood Count 6.8 10^3/ul (3.5-10.8)
[2017-02-23 05:33] LABS: Albumin 3.2 g/dL (3.2-5.2); BUN/Creatinine Ratio 15.4 (8-20); C Reactive Protein 93.87 mg/L (< 5.00); Calcium 8.4 mg/dL (8.6-10.3); Direct Bilirubin 0.2 mg/dL (0.03-0.18); EGFR Non-African American 130.6 (>60); Globulin 2.7 g/dL (2-4); Indirect Bilirubin 0.4 mg/dL (0.3-1.0); Potassium 3.8 mmol/L (3.5-5.0); Total Bilirubin 0.6 mg/dL (0.2-1.0); Total Protein 5.9 g/dL (6.4-8.9)
[2017-02-23] MEDS: PROCHLORPERAZINE INJ 5 MG/ML 2 ML VIAL IV PRN (06:23)
[2017-02-23 07:30] VITALS: BP 119/65
[2017-02-23] MEDS: Acetaminophen TAB* 325 MG PO PRN (09:17)
[2017-02-23] MEDS: Docusate CAP* 100 MG PO SCH (09:17)
[2017-02-23] MEDS: SUMAtriptan TAB* 50 MG PO PRN (09:17)
--- NOTE | 2017-02-23 10:47 | PN ---
Progress Note - Progress Note Date of Service: 02/23/17 SOAP: Subjective: CC: headache HPI: 41 yo woman with recent onset fever and right sided headache. Seen in ER on a couple of occasions, had an LP Tuesday. Returned 02/21 with headache and fever, no focal symptoms. No fever since yesterday, felt better this morning now with headache and nausea. Headache improved, no fever. Eating some. Objective: [] Vital Signs Temp 36.4 C 02/23/17 04:03 Pulse 42 02/23/17 07:19 Resp 16 02/23/17 07:19 BP 119/65 02/23/17 07:19 Pulse Ox 98 02/23/17 07:19 Intake & Output 02/22/17 02/23/17 02/23/17 18:59 06:59 18:59 Intake Total 1338 3221 Balance 1338 3221 Intake: IV Fluids 968 2561 NS (0.9%) 2161 IVPB 250 Oral 120 660 Other: Estimated Void Medium # Bowel Movements 0 # Voids 4 3 Gen:awake, appears uncomfortable HEENT:PERRL, MMM Neck:Supple, no rigidity Heart:RRR no murmur Lungs:CTA BL Abd:+BS NTND soft Skin: no rash Laboratory Results - last 24 hr 02/21/17 02/23/17 02/23/17 07:37 05:01 05:01 WBC 6.8 RBC 3.97 L Hgb 12.3 Hct 37 MCV 92 MCH 31 MCHC 33 RDW 13 Plt Count 116 L MPV 9 Neut % (Auto) 56.0 Lymph % (Auto) 35.3 [place] % (Auto) 7.1 Eos % (Auto) 1.0 Baso % (Auto) 0.6 Absolute Neuts (auto) 3.8 Absolute Lymphs (auto) 2.4 Absolute Monos (auto) 0.5 Absolute Eos (auto) 0.1 Absolute Basos (auto) 0 Absolute Nucleated RBC 0.01 Nucleated RBC % 0.1 Sodium 138 Potassium 3.8 Chloride 108 Carbon Dioxide 23 Anion Gap 7 BUN 8 Creatinine 0.52 Est GFR ( Amer) 168.0 Est GFR (Non-Af Amer) 130.6 BUN/Creatinine Ratio 15.4 Glucose 78 Calcium 8.4 L Total Bilirubin 0.60 Direct Bilirubin 0.20 H Indirect Bilirubin 0.4 AST 21 ALT 33 Alkaline Phosphatase 60 C-Reactive Protein 93.87 H Total Protein 5.9 L Albumin 3.2 Globulin 2.7 Albumin/Globulin Ratio 1.2 Anaplasma DNA (PCR) Negative B. divergens/MO-1 PCR Negative Babesia duncani DNA PCR Negative Babesia microti DNA PCR Negative Borrelia miyamotoi (PCR) Negative E.chaffeensis DNA (PCR) Negative E. ewingii/canis (PCR) Negative E. muris-like DNA (PCR) Negative Assessment: 1. fever, Headache, thrombocytopenia, LP no CSF pleocytosis; differential includes viral infection (WNV, [place], other seasonal), Lyme (have had a few this year that included low PLT). Improving 2. sulfa allergy Plan: 1. continue doxycycline 100 mg PO Q12hrs for 14 days. Follow up with me 1-2 weeks to go over results, she agrees to return if worsening headache or fever or can't keep down PO. Discussed with Dr Jackson
[2017-02-23] MEDS ORDERED: Omeprazole CAP* 20 MG PO SCH (11:21)
[2017-02-23] MEDS ORDERED: DOXYcycline CAP(*) 100 MG PO ONE (11:36)
[2017-02-23] MEDS: Ibuprofen TAB* 600 MG PO PRN (11:57)
[2017-02-23] MEDS: traMADol TAB* 50 MG PO PRN (11:58)
[2017-02-23] MEDS: DOXYcycline IV* 100 MG in NS 0.9% 250 ML* 250 ML IVPB SCH (11:59)
--- NOTE | 2017-02-24 10:58 | DS ---
CC: MERVIN Galdamez * DISCHARGE SUMMARY: DATE OF ADMISSION: 02/21/17 DATE OF DISCHARGE: 02/23/17 PRIMARY CARE PHYSICIAN: MERVIN Galdamez PRIMARY DIAGNOSES: 1. Fever, source unknown. 2. Headache. SECONDARY DIAGNOSES: Include, 1. Concern of Lyme, test pending. 2. Bradycardia. MEDICATIONS ON DISCHARGE: 1. Abilify 10 mg at bedtime. 2. Bupropion 300 mg daily. 3. Trazodone 50 mg at bedtime. 4. Tramadol 50 mg every 6 hours as needed for pain, dispensed 20 tabs. 5. Senna 2 tabs at bedtime. 6. Imitrex 50 mg one tab, can be followed by a second tab 2 hours later if headache continues. 7. MiraLAX 17 g daily as needed for constipation. 8. Docusate 200 mg daily. 9. Doxycycline 100 mg twice daily for 14 additional days. 10. Acetaminophen 650 mg every 6 hours as needed for pain. HISTORY OF PRESENT ILLNESS AND HOSPITAL COURSE: This 41-year-old female with past medical history as outlined in the history of present illness on the day of admission presented to the hospital with concern for fever and headache. There was concern given the patient's fever and headache and she had meningitis. However, lumbar puncture performed prior to this presentation with 0 white blood cells, normal glucose and total protein. The patient was seen in conjunction with Infectious Diseases and PCR for multiple tick-borne illnesses were sent and returned negative, including anaplasma, babesia, and ehrlichia. Lyme disease was pending at the time of this dictation. The patient was started on doxycycline empirically and her fevers abated, her last fever was on 02/21/17 on the day of admission. Peak temperature was 102.7. The patient did struggle with headaches throughout the course of the hospital stay. She did experience some relief with Imitrex and a prescription was given to her on discharge. In addition with instruction to continue Tylenol with Tramadol at breakthrough as needed. The patient's heart rate was noted to be bradycardiac. EKG noted sinus bradycardia without any abnormal findings. There were no complications during patient's hospital stay. At follow up, please: 1. Please follow Lyme serologies. 2. Please follow for any additional fevers. Adjust medications and testing as necessary. 3. Follow up for resolution of bradycardia once out of the hospital. 4. No other specific labs or vitals that need followup. Reasons to return to the hospital included but not limited to recurrent or worsening symptoms including fevers, chills, night sweats, chest pain, shortness of breath, nausea, vomiting, lightheadedness, loss of consciousness, inability to obtain or tolerate medications were discussed at length with the patient. She acknowledged understanding. TIME SPENT: Greater than 45 minutes were spent on the discharge of this patient , greater than half was spent [id number] with the patient. [id number]/[facility] #: [id number] ROBBY
== END 2017-02-23 13:20 | disposition home or self-care (01) | DRG 722 ==
LOC: ED 06:48 → MED 10:03 → OBSVTOIN 02-22 15:34
PROVIDERS: ADMIT Internal Medicine; ATTEND Internal Medicine
DX: R50.9 Fever, unspecified (principal); A69.20 Lyme disease, unspecified; D69.6 Thrombocytopenia, unspecified; R51 Headache; R00.1 Bradycardia, unspecified; B34.9 Viral infection, unspecified; K13.70 Unspecified lesions of oral mucosa; I95.9 Hypotension, unspecified; F32.9 Major depressive disorder, single episode, unspecified; F41.9 Anxiety disorder, unspecified; Z79.899 Other long term (current) drug therapy; Z87.891 Personal history of nicotine dependence; Z88.2 Allergy status to sulfonamides; Z82.49 Family history of ischemic heart disease and other diseases of the circulatory system
CPT/HCPCS: 36415; 71010; 80048; 80053; 80076; 81003; 83605; 84702; 85025; 85652; 86140; 86788; 86789; 87040; 87798; 93005; 99406; A9270-GY; G0378; J0780; J1885; J2270; J2405

== ENCOUNTER → 2019-08-03 08:08 | Day surgery (SDC) | payer BC ==
[~2019-08-03 08:08] MED LIST: Buffered Lidocaine 1% SYRIN* 1 ML/SYRINGE INTRADERM ONE; Famotidine IV* 10 MG/ML 2 ML (20 mg) IV ONE; Famotidine IV* 10 MG/ML 2 ML (20 mg) ONE; KETAMINE HCL* 50 MG/ML 10 ML VIAL ONE; Lactated Ringers 1000 ML Bag* 1,000 ML IV SCH; Lidocaine 2% PF * 5 ML VIAL ONE; Midazolam* 1 MG/ML 5 ML VIAL (5 MG) ONE; Naloxone* 0.4 MG/ML 1 ML VIAL IV PRN; Ondansetron INJ* 2 MG/ML VIAL IV PRN; Ondansetron INJ* 2 MG/ML VIAL ONE; Propofol* 10 MG/ML 20 ML BTL ONE; fentaNYL* 50 MCG/ML 2 ML VIAL (100 MCG VIAL) IV PRN; fentaNYL* 50 MCG/ML 2 ML VIAL (100 MCG VIAL) ONE
[2019-08-03 10:46] VITALS: BP 121/73
--- NOTE | 2019-08-03 23:19 | PRO ---
CC: Alex Varela NP* ESOPHAGOGASTRODUODENOSCOPY REPORT: DATE OF PROCEDURE: 08/03/19 PRIMARY CARE PHYSICIAN: Alex Varela NP INDICATION FOR PROCEDURE: Erosive esophagitis. PROCEDURE PERFORMED: Complete esophagogastroduodenoscopy with biopsies. MEDICATIONS GIVEN: Please see anesthesia record. DESCRIPTION OF PROCEDURE: After the EGD procedure including the risks, benefits , and alternatives with the risks not limited to perforation, surgery, missed lesions, and/or were explained to the patient, written informed consent was obtained, IV medication was given, and a bite-block was placed between the teeth. The adult Olympus gastroscope was then inserted into the patient's oropharynx into the tubular esophagus. The tubular esophagus showed mild Z- line variability, this was biopsied to rule out Hyde's. The previous erosive esophagitis has healed nicely. The scope was advanced through the lower esophageal sphincter into the stomach. Direct views were normal. On retroflexion, a 2 cm sliding hiatal hernia was appreciated. The scope was then advanced through the widely patent pylorus into the duodenal bulb, C-loop, distal duodenum and these were normal in appearance. The scope was then removed from the patient. She tolerated the procedure well. She returned to the recovery room in stable condition. IMPRESSION: 1. Complete esophagogastroduodenoscopy with biopsies. 2. Healed erosive esophagitis. 3. Mild Z-line variability, biopsy to rule out Hyde's. 4. 2 cm sliding hiatal hernia. 5. Otherwise normal EGD. RECOMMENDATIONS: Continue to avoid NSAIDs. Would recommend treating with PPI therapy for 3 more months and then try to transition off into p.r.n. H2 terrance therapy. However, given the hiatal hernia, she may ultimately need long-term PPI therapy. [id number]/[facility] #: [id number] [facility]
== END | disposition home or self-care (01) ==
LOC: OR 08:08
PROVIDERS: ATTEND Internal Medicine Gastroenterology
DX: K21.9 Gastro-esophageal reflux disease without esophagitis (principal); K44.9 Diaphragmatic hernia without obstruction or gangrene; R10.10 Upper abdominal pain, unspecified; R19.7 Diarrhea, unspecified; F41.8 Other specified anxiety disorders; Z87.442 Personal history of urinary calculi; Z88.2 Allergy status to sulfonamides
CPT/HCPCS: 81025; 88305; J2250; J2405; J2704; J3010